=== PATIENT | female | born 1965 | race American Indian/Alaskan Native ===

== ENCOUNTER 2019-06-22 08:23 | Emergency (ER) | payer MEDICARE ==
[2019-06-22 09:33] LABS: Alanine Aminotransferase 8 units/L (7-56); Albumin 3.8 g/dL (3.9-5); BUN/Creatinine Ratio 13; Blood Urea Nitrogen 9 mg/dL (7-17); Calcium 8.7 mg/dL (8.4-10.2); Hemolysis Index 3
[2019-06-22 09:39] LABS: Bacteria,Urine 1+ /HPF (Negative); Bilirubin,Urine NEG (Negative); Blood,Urine NEG (Negative); Color,Urine Yellow (Yellow); Mucus,Urine FEW /HPF; Protein,Urine <15 mg/dL mg/dL (Negative); Urobilinogen,Urine < 2.0 mg/dL (<2.0)
[2019-06-22 09:43] LABS: Basophils % (Auto) 0.4 % (0.0-1.8); Eosinophils # (Auto) 0.1 K/mm3 (0.0-0.4); Eosinophils % (Auto) 1.9 % (0.0-4.3); Lymphocytes # (Auto) 1.2 K/mm3 (1.2-5.4); Lymphocytes % (Auto) 22.5 % (13.4-35.0); Mean Corpuscular HGB Conc 30 % (30-34); Mean Corpuscular Volume 70 fl (79-97); Monocytes # (Auto) 0.5 K/mm3 (0.0-0.8); Monocytes % (Auto) 8.9 % (0.0-7.3); Platelet Count 341 K/mm3 (140-440); Red Blood Count 4.41 M/mm3 (3.65-5.03)
[2019-06-22 09:49] LABS: Hemoglobin 9.2 gm/dl (10.1-14.3); Red Cell Distribution Width 20.7 % (13.2-15.2)
--- NOTE | 2019-06-22 09:49 | Emergency Department Report ---
ED Abdominal Pain HPI - General Chief Complaint: Abdominal Pain Stated Complaint: RT LOWER ABD PAIN Time Seen by Provider: 06/22/19 09:18 Source: patient Mode of arrival: Ambulatory Limitations: No Limitations - History of Present Illness Initial Comments: 53 yo F w/ hx of anemia presents to ED w/ RLQ abdominal pain x 2 days. Pt denies fever, N/V/D, urinary frequency, dysuria. MD Complaint: abdominal pain -: days(s) (2) Location: RLQ Radiation: none Migration to: no migration Severity: moderate Quality: aching Consistency: constant Improves With: nothing Worsens With: nothing Associated Symptoms: denies: nausea, vomiting, diarrhea, fever, constipation, dysuria - Related Data Previous Rx's Medication Instructions Recorded Last Taken Type Naproxen [Naprosyn] 500 mg PO BID #20 tablet 06/22/19 Unknown Rx traMADoL [Ultram] 50 mg PO Q6HR PRN #7 tablet 06/22/19 Unknown Rx Allergies Allergy/AdvReac Type Severity Reaction Status Date / Time No Known Allergies Allergy Verified 06/22/19 08:30 ED Review of Systems ROS: Stated complaint: RT LOWER ABD PAIN Other details as noted in HPI Comment: All other systems reviewed and negative Constitutional: denies: chills, fever Gastrointestinal: abdominal pain. denies: nausea, vomiting, diarrhea Genitourinary: denies: dysuria, frequency ED Past Medical Hx - Past Medical History Previous Medical History?: Yes Additional medical history: anemia - Surgical History Past Surgical History?: Yes Additional Surgical History: tonsillectomy - Social History Smoking Status: Never Smoker Substance Use Type: None - Medications Home Medications: Home Medications Medication Instructions Recorded Confirmed Last Taken Type Naproxen [Naprosyn] 500 mg PO BID #20 tablet 06/22/19 Unknown Rx traMADoL [Ultram] 50 mg PO Q6HR PRN #7 tablet 06/22/19 Unknown Rx ED Physical Exam - General Limitations: No Limitations General appearance: alert, in no apparent distress - Head Head exam: Present: atraumatic, normocephalic - Eye Eye exam: Present: normal appearance, EOMI - ENT ENT exam: Present: mucous membranes moist - Neck Neck exam: Present: normal inspection - Respiratory Respiratory exam: Present: normal lung sounds bilaterally. Absent: respiratory distress - Cardiovascular Cardiovascular Exam: Present: regular rate, normal rhythm - GI/Abdominal GI/Abdominal exam: Present: soft, tenderness (RLQ tenderness), hernia (in LLQ). Absent: distended - Extremities Exam Extremities exam: Present: normal inspection - Neurological Exam Neurological exam: Present: alert, oriented X3 - Psychiatric Psychiatric exam: Present: normal affect, normal mood - Skin Skin exam: Present: warm, dry, intact, normal color ED Course Vital Signs 06/22/19 06/22/19 08:29 11:50 Pulse Rate 69 72 Respiratory 20 16 Rate Blood Pressure 122/57 Blood Pressure 122/62 [Left] O2 Sat by Pulse 100 100 Oximetry ED Medical Decision Making - Lab Data Result diagrams: 06/22/19 08:52 06/22/19 08:52 - Radiology Data Radiology results: report reviewed, image reviewed - Medical Decision Making 53 yo F w/ RLQ pain. Vitals normal, afebrile. WBCs normal. RLQ tenderness on exam. Urine unremarkable. Pt tolerating PO. CT shows right ovarian cyst. Pt informed of results. Outpt f/u advised. Prescriptions given. Return precauti ons given. - Differential Diagnosis UTI, kidney stone appendicitis, ovarian cyst Critical care attestation.: If time is entered above; I have spent that time in minutes in the direct care of this critically ill patient, excluding procedure time. ED Disposition Clinical Impression: Right ovarian cyst Disposition: - TO HOME OR SELFCARE Is pt being admited?: No Condition: Stable Instructions: Ovarian Cyst (ED) Prescriptions: Naproxen [Naprosyn] 500 mg PO BID #20 tablet traMADoL [Ultram] 50 mg PO Q6HR PRN #7 tablet PRN Reason: Pain Referrals: PRIMARY CAREMD [Primary Care Provider] - 3-5 Days DEVANTE RUTLEDGE MD [Staff Physician] - 3-5 Days Forms: Work/School Release Form(ED) Time of Disposition: 11:48
--- NOTE | 2019-06-22 11:32 | Cat Scan Report ---
CT abdomen pelvis wo con INDICATION / CLINICAL INFORMATION: RLQ pain. TECHNIQUE: All CT scans at this location are performed using CT dose reduction for ALARA by means of automated e xposure control. COMPARISON: None available. FINDINGS: No acute disease is seen in either lower lung. ABDOMEN: The gallbladder, liver, spleen, pancreas, kidneys and adrenal glands are normal. No mesenteric or retroperitoneal adenopathy. No small bowel dilatation. Pelvis: There is a left inguinal hernia containing left: No evidence of obstruction. A 6.5 x 5.0 cm cyst is identified arising from the right ovary. No pelvic adenopathy or dependent fluid collections. No skeletal abnormality. IMPRESSION: 1. Left inguinal hernia containing nonobstructed left colon. 2. Large right ovarian cyst. Signer Name: Benjamin Cordova MD Signed: 06/22/2019 11:28 AM Workstation Name: [id number]
[2019-06-22 11:51] VITALS: BP 122/62
[2019-06-22] MEDS ORDERED: KETOROLAC 30 MG/1 ML INJ ONE (12:07)
[2019-06-22] MEDS ORDERED: KETOROLAC 30 MG/1 ML INJ IM ONE (12:11)
== END 2019-06-22 12:18 | disposition home or self-care (01) ==
LOC: ED 08:23
DX: N83.291 Other ovarian cyst, right side (principal); Z90.89 Acquired absence of other organs; Z86.2 Personal history of diseases of the blood and blood-forming organs and certain disorders involving the immune mechanism
CPT/HCPCS: 36415; 74176; 80053; 81001; 84703; 85025; 96372; 99284; J1885